=== PATIENT | male | born 1970 | race Caucasian/White ===

== ENCOUNTER 2021-05-23 11:15 | Emergency (ER) | payer OTHER, SELFPAY ==
[2021-05-23 11:28] VITALS: BP 127/69; PULSE 102; RESP 16; TEMP 36.6; O2SAT 98
[2021-05-23 11:35] VITALS: BP 127/69; PULSE 102; RESP 16; TEMP 36.6; O2SAT 98
--- NOTE | 2021-05-23 11:43 | ED.URI ---
HPI - URI/Sore Throat General Chief Complaint: Upper Respiratory Infection Stated Complaint: Cough Time Seen by Provider: 05/23/21 11:15 Source: patient, RN notes reviewed and old records reviewed History of Present Illness HPI Narrative: 50 year old male who presents to [facility] with complaints of sore throat, cough, fever, and runny nose for 1 week duration. 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 He has not been vaccinated or had previous infection. Patient states that he has not experienced any acute shortness of breath at rest or with exertion, reports that cough is priductive of yellowish green sputum MD elicited complaint: fever, cough, sore throat and rhinorrhea Pertinent past history: seasonal allergies Onset (ago): week(s) (1) Description of mucous: green Able to tolerate fluids by mouth: Yes Treatments prior to arrival: ibuprofen and cold medicine Related Data Allergies Allergy/AdvReac Type Severity Reaction Status Date / Time No Known Allergies Allergy Verified 07/06/17 12:04 Review of Systems Review of Systems: Narrative: CONSTITUTIONAL: Positive fever episodes, chills, or sweats. no fever since EYES: Denies visual changes, redness, or discharge. ENT: Positive rhinorrhea, congestion, sore throat, no otalgia. CARDIOVASCULAR: Denies chest pain, palpitations, or edema. RESPIRATORY: Positive for cough denies any dyspnea. GASTROINTESTINAL: Denies abdominal pain, nausea, vomiting, or diarrhea. GENITOURINARY: Denies dysuria or hematuria. SKIN: Denies rash or itching. MUSCULOSKELETAL: Denies back pain, joint pain, or myalgia. NEUROLOGIC: Denies headache, numbness, or weakness. PSYCHIATRIC: Positive history of anxiety or depression. All systems reviewed & are unremarkable except as noted in HPI and below PMFSH Past Medical History Medical History (Updated 05/25/21 @ 20:08 by Kirstin Sandhu NP) Anxiety Sinus problem Tuberculosis 23 years ago Surgical History Surgical History (Updated 05/25/21 @ 20:08 by Kirstin Sandhu NP) Hx of appendectomy Family History Family History (Updated 05/25/21 @ 20:09 by Kirstin Sandhu NP) Other No significant family history Social History Social History (Updated 05/23/21 @ 12:22 by Kirstin Sandhu NP) Smoking packs per day: 0.5 Smoking cigarettes per day: 10.0 Years smoked: 25 Smoking pack-years: 12.50 Smoking status: Current every day smoker Comments At time of signature, agree with nursing past medical, surgical, social and family history. There is no relevant family history pertinent to the presenting complaint Exam Narrative: Exam Narrative: GENERAL: Well-appearing, well-nourished, and in no acute distress HEAD: Normocephalic, atraumatic. EYES: PERRLA and EOMI. ENT: Nares red with clear rhinorrhea no epistaxis. Mucous membranes moist.TM's normal with good light reflex, throat red with no lesions or exudate no tonsil enlargement post nasal drainage noted. NECK: Supple.no lymphadenopathy CHEST: Clear to auscultation. No respiratory distress.SAO2@ 98% productive cough HEART: Regular rate and rhythm. No murmur heard. Normal peripheral pulses. ABDOMEN: Soft, nontender, nondistended, normal active bowel sounds. EXTREMITIES: Normal range of motion. No edema. SKIN: Warm, dry, no rash. NEURO: No focal deficits. Alert and oriented x3. Course Vital Signs Vital signs: Vital Signs Temperature 36.6 C 05/23/21 11:28 Pulse Rate 102 H 05/23/21 11:28 Respiratory Rate 16 05/23/21 11:28 Blood Pressure 127/69 05/23/21 11:28 Pulse Oximetry 98 05/23/21 11:28 Temperature 36.6 C 05/23/21 11:35 Pulse Rate 102 H 05/23/21 11:35 Respiratory Rate 16 05/23/21 11:35 Blood Pressure 127/69 05/23/21 11:35 Pulse Oximetry 98 05/23/21 11:35 MDM - URI/Sore Throat Differential Diagnosis Differential diagnosis: Likely upper respiratory infection, sinusitis, viral infectio
--- NOTE | 2021-05-23 12:13 | PC.NURSE ---
kaity called for covid pcr p/u
--- NOTE | 2021-05-23 12:21 | PC.NURSE ---
given patient portal guide.
[2021-05-25 15:56] LABS: SARS-CoV-2 RNA PCR Negative
== END 2021-05-23 12:40 | disposition home or self-care (01) ==
PROVIDERS: Emergency Provider Registered Nurse
DX: J06.9 Acute upper respiratory infection, unspecified (principal); Z20.822 Contact with and (suspected) exposure to COVID-19
CPT/HCPCS: 87081; 87426; 87804; 87880; 99213; C9803; G0463; U0003; U0005